=== PATIENT | male | born 1990 | race African-American/Black ===

== ENCOUNTER 2023-09-04 19:01 | Emergency (ER) | payer MEDICAID, SELFPAY ==
--- NOTE | ~2023-09-04 | XR_ITS ---
EXAMINATION: XR hand RT min 3V INDICATION: Right hand pain TECHNIQUE: Three views of the right hand are obtained. COMPARISON: None available FINDINGS: No fracture, dislocation, or subluxation. The bones, soft tissues, and joint spaces are nor mal. An old ulnar styloid avulsion is noted. IMPRESSION: 1. No acute osseous abnormality. Reviewed, dictated and finalized at location F.
[2023-09-04 19:16] VITALS: BP 123/67; PULSE 72; RESP 18; TEMP 36.5; O2SAT 99
--- NOTE | 2023-09-04 20:22 | ED.GENADULT ---
HPI - General Adult General Chief complaint: Extremity Injury, Upper Stated complaint: right hand injury Time Seen by Provider: 09/04/23 20:15 History of Present Illness HPI narrative: Patient 33-year-old gentleman who presents the emergency department with chief complaint of right hand injury. Patient reports that about 2 weeks ago he was sparring and struck his hand patient states that he has had pain in the dorsum of the right hand reports it is worse with movement and improved with rest. Patient reports no laceration denies puncture wound Related Data Allergies Allergy/AdvReac Type Severity Reaction Status Date / Time No Known Allergies Allergy Verified 09/04/23 19:01 Review of Systems Review of Systems: A 10 system review of systems was completed on the patient and is negative except for what is stated in the HPI. Nursing and ancillary documentation was reviewed. Exam Narrative: GENERAL: Well-appearing, well-nourished, and in no acute distress. HEAD: Normocephalic, atraumatic. EYES: PERRLA and EOMI. ENT: Nares clear, no rhinorrhea or epistaxis. Mucous membranes moist. NECK: Supple. CHEST: Clear to auscultation. No respiratory distress. HEART: Regular rate and rhythm. No murmur heard. Normal peripheral pulses. ABDOMEN: Soft, nontender, nondistended, normal active bowel sounds. EXTREMITIES: Normal range of motion, tenderness to palpation of the dorsum of the right hand. No edema. SKIN: Warm, dry, no rash. NEURO: No focal deficits. Alert and oriented x3. PSYCH: Normal mood and affect. Course Vital Signs Vital signs: Vital Signs Temperature 36.5 C 09/04/23 19:16 Pulse Rate 72 09/04/23 19:16 Respiratory Rate 18 09/04/23 19:16 Blood Pressure 123/67 09/04/23 19:16 Pulse Oximetry 99 09/04/23 19:16 Oxygen Delivery Room Air 09/04/23 19:16 Temperature 36.5 C 09/04/23 19:16 Pulse Rate 72 09/04/23 19:16 Respiratory Rate 18 09/04/23 19:16 Blood Pressure 123/67 09/04/23 19:16 Pulse Oximetry 99 09/04/23 19:16 Oxygen Delivery Room Air 09/04/23 19:16 Medical Decision Making [facility] Narrative Medical decision making narrative: Differential diagnosis includes fracture, contusion, sprain Plain film x-rays of the right hand showed no evidence of fracture Patient was started on anti-inflammatory and instructed to follow-up with primary care Vital Signs Vital Signs: Vital Signs Temperature 36.5 C 09/04/23 19:16 Pulse Rate 72 09/04/23 19:16 Respiratory Rate 18 09/04/23 19:16 Blood Pressure 123/67 09/04/23 19:16 Pulse Oximetry 99 09/04/23 19:16 Oxygen Delivery Room Air 09/04/23 19:16 Temperature 36.5 C 09/04/23 19:16 Pulse Rate 72 09/04/23 19:16 Respiratory Rate 18 09/04/23 19:16 Blood Pressure 123/67 09/04/23 19:16 Pulse Oximetry 99 09/04/23 19:16 Oxygen Delivery Room Air 09/04/23 19:16 Discharge Plan Discharge Clinical Impression: Contusion of hand, right Patient Disposition: Home, Self-Care Condition: Stable Instructions: Antibiotic Form, Contusion in Adults (ED) Follow-up/Referrals: PHYSICIAN,LUCERNE FARMER [Primary Care Provider] - Tra Ho MD [Physician] - Time of Disposition: 20:30
== END 2023-09-04 21:06 | disposition home or self-care (01) ==
LOC: ANHED 20:37
PROVIDERS: Emergency Provider Emergency Medicine
DX: S60.221A Contusion of right hand, initial encounter (principal); W22.8XXA Striking against or struck by other objects, initial encounter
CPT/HCPCS: 73130; 99283

== ENCOUNTER 2025-10-11 20:57 | Emergency (ER) | payer MEDICAID, OTHER, SELFPAY ==
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
[2025-10-11 21:07] VITALS: BP 151/76; PULSE 87; RESP 20; TEMP 36.8; O2SAT 100
--- NOTE | 2025-10-11 23:15 | PC.NURSE ---
Report to Maral BAKER
[2025-10-12] MEDS: ACETAMINOPHEN 500 MG TABLET 1000 MG PO (00:25)
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
== END 2025-10-12 01:28 | disposition home or self-care (01) ==
DX: S19.9XXA Unspecified injury of neck, initial encounter (principal); S39.92XA Unspecified injury of lower back, initial encounter; V63.5XXA Driver of heavy transport vehicle injured in collision with car, pick-up truck or van in traffic accident, initial encounter
CPT/HCPCS: 70450; 72125; 72131; 99284; A9270